=== PATIENT | female | born 1935 | race Caucasian/White ===

== ENCOUNTER 2016-07-06 09:12 | Emergency (ER) | payer OTHER ==
[~2016-07-06] VITALS: Ht 152.4 cm; Wt 72.6 kg
--- NOTE | 2016-07-06 09:36 | ED AMS/SEIZURE/WEAK/DIZZY ---
History of Present Illness General Chief Complaint: Dizziness Stated Complaint: DIZZY,SOB Source: patient, family Exam Limitations: no limitations Vital Signs & Intake/Output Vital Signs & Intake/Output Vital Signs Date Time Temp Pulse Resp B/P Pulse O2 O2 Flow FiO2 Ox Delivery Rate 07/06 1244 56 16 153/68 98 Room Air 07/06 1140 143/67 07/06 1134 97 Room Air 07/06 1104 76 18 96 Room Air 07/06 0919 97.0 60 20 163/93 98 Room Air Room Air Allergies Uncoded Allergies: ENVIRONMENTAL ALLERGIES DUST (Severe, SNEEZING, SINUS INFECTION 08/02/12) Reconcile Medications Amlodipine Bes/Olmesartan Med (Amlodipine-Olmesartan 5-20 MG) 5 MG-20 MG TABLET 1 TAB PO DAILY HEART (Reported) Augmentin (Augmentin 500-125 Tablet) 500 MG-125 MG TABLET 1 TAB PO BID SINUSITIS Cetirizine HCl (Zyrtec) 10 MG TABLET 1 TAB PO DAILY PRN CONGESTION Ezetimibe (Zetia) 10 MG TABLET 1 TAB PO DAILY CHOLESTEROL (Reported) Glimepiride 1 MG TABLET 1 TAB PO DAILY DIABETES (Reported) Glimepiride 2 MG TABLET 1 TAB PO DAILY DIABETES (Reported) Hydrochlorothiazide 25 MG TABLET 1 TAB PO DAILY WATER PILL (Reported) Insulin Detemir (Levemir Flextouch) 100 UNIT/ML (3 ML) INSULN.PEN 30 U SC QPM DIABETES (Reported) Insulin Lispro (Humalog) 100 UNIT/ML VIAL 8 U SC 1800 DIABETES (Reported) Linaclotide (Linzess) 290 MCG CAPSULE 1 CAP PO DAILY GI (Reported) Lovastatin 40 MG TABLET 1 TAB PO DAILY CHOLESTEROL (Reported) with food Meclizine HCl 25 MG TABLET 1 TAB PO TIDPRN PRN DIZZINESS Mometasone Furoate (Nasonex) 50 MCG SPRAY.PUMP 2 SPRAY NASB DAILY CONGESTION Scopolamine Hydrobromide (Transderm-Scop) 1.5MG/3DAY PATCH.TD.3 1 PAT TOP Q3D DIZZINESS apply to the hairless area behind 1 ear at least 4 hours before effect is required; reapply every 3 days as needed Sertraline HCl 50 MG TABLET 1 TAB PO DAILY MENTAL HEALTH (Reported) Sitagliptin Phosphate (Januvia) 100 MG TABLET 1 TAB PO DAILY DIABETES ( Reported) Triage Note: TRIAGE: 80 Y/O FEMALE PRESENTS WITH DAUGHTER C/O DIZZINESS, WITH ONSET YESTERDAY. "I DON'T FEEL RIGHT. MY LEGS FEEL SHAKY. I FEEL LIGHT HEADED." PER DAUGHTER, EYES APPEARS GALZED OVER LAST NIGHT. HISTORY OF HTN, DM, HYPERLIPIDEMIA. Triage Nurses Notes Reviewed? 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 Patient states at rest she feels much better and makes worse with movements. Daughter also noted that last night she had "GLAZED" LOOK IN HER EYES which has resolved since this morning. Patient woke up today and states the symptoms are still persistent Patient denies any fevers, chills, headache neck pain neck stiffness, ear pain, sore throat, chest pain arm pain jaw pain, abdominal pain, shortness of breath Patient did not take any medications for symptoms. Patient states that when symptoms are worse she has mild nausea without emesis Daughter denies any confusion, slurred speech, or weakness or facial droop (ADRIENNE PYLE) Past History Travel History Traveled to [place] past 21 day No Medical History Any Pertinent Medical History? see below for history Cardiovascular: hypertension, hyperlipidemia Endocrine: diabetes Surgical History Surgical History: non-contributory Psychosocial History What is your primary language Macedonian Tobacco Use: Never used ETOH Use: occasional use Illicit Drug Use: denies illicit drug use Family History Hx Contributory? No (ADRIENNE PYLE) Review of Systems Review of Systems Constitutional: Reports: no symptoms. EENTM: Reports: see HPI. Respiratory: Reports: see HPI. Cardiovascular: Reports: no symptoms. GI: Reports: see HPI, nausea. Denies: abdominal pain. Genitourinary: Reports: no symptoms. Musculoskeletal: Reports: no symptoms. Skin: Reports: no symptoms. Neurological/Psychological: Reports: no symptoms. Hematologic/Endocrine: Reports: no symptoms. Immunologic/Allergic: Reports: no symptoms. All Other Systems: Reviewed and Negative (ADRIENNE PYLE) Physical Exam Physical Exam General Appearance: well developed/nourished, no apparent distress, alert Comments: Well-developed well-nourished person in no acute distress HEENT: Normal EENT exam, extraocular motion intact, no nystagmus. Pupils equally round and reactive to light and accommodation. Nose is atraumatic. External auditory canal and Tympanic membranes clear. Pharynx normal. No swelling or edema. Bilateral frontal sinus point tenderness noted Nasal congestion noted Neck: Supple, no lymphadenopathy, normal range of motion without pain or tenderness Back: Nontender, no CVA tenderness. Cardiovascular: Regular rate and rhythms no murmurs rubs or gallops, normal JVP Respiratory: Chest nontender. No respiratory distress.breath sounds clear to auscultation bilaterally Abdomen: Soft, nontender nondistended, no appreciable organomegaly. Normal bowel sounds. No ascites Extremity: No edema, no calf tenderness to palpation, normal and equal pulses. Neuro: Alert oriented x3, motor sensory normal, cranial nerves II through XII grossly intact. Negative cerebellar testing negative Romberg Negative Dicks Hallpike Skin: No appreciable rash on exposed skin, skin is warm and dry. Psych: Mood and affect is normal, memory and judgment is normal. NIH STROKE SCALE 0 Core Measures ACS in differential dx? No CVA/TIA Diagnosis: No Severe Sepsis Present: No Septic Shock Present: No (ADRIENNE PYLE) Progress Differential Diagnosis: arrythmia, anemia, benign positional vertigo, CVA/stroke , dehydration, drug intoxication, encephalitis, electrolyte imbalance, GI bleed, hypoglycemia, hypoxia, intracranial Hem., intracranial mass/tumor, labrynthitis, meningitis, Meniere's disease, migraine PARKER, multiple sclerosis, pneumonia, postural hypotension, presyncope, post-traumatic vertigo, sepsis, seizure disorder, subarachnoid Hem., UTI/pyelo, vertebrobasilar insuff Plan of Care: Orders Procedure Date/time Status Add-on Test (ER Only) 07/06 1102 Active TROPONIN LEVEL 07/06 0948 Complete MAGNESIUM 07/06 0948 Complete COMPREHENSIVE METABOLIC PANEL 07/06 0948 Complete CBC WITHOUT DIFFERENTIAL 07/06 0948 Complete B-TYPE NATRIURETIC PEP (BNP) 07/06 0948 Complete EKG 07/06 0913 Active Laboratory Tests 07/06/16 0948: Anion Gap 10, Estimated GFR > 60, BUN/Creatinine Ratio 37.5 H, Glucose 275 H, Calcium 9.2, Magnesium 1.7, Total Bilirubin 0.4, AST 38 H, ALT 40, Alkaline Phosphatase 82, Troponin I < 0.01, Swr-J-Crnjfknpmvk Pept 53.8, Total Protein 6.5, Albumin 3.6, Globulin 2.9, Albumin/Globulin Ratio 1.2, CBC w Diff NO MAN DIFF REQ, RBC 4.41, MCV 86.0, MCH 29.3, RDW 15.7 H, MPV 13.4 H, Gran % 61.4, Lymphocytes % 27.2, Monocytes % 8.1, Eosinophils % 2.6, Basophils % 0.7, Absolute Granulocytes 3.9, Absolute Lymphocytes 1.7, Absolute Monocytes 0.5, Absolute Eosinophils 0.2, Absolute Basophils 0, PUBS MCHC 34.0 Patient currently is in no apparent distress. Due to history of present illness and exam findings or suspicion of sinus infection with associated symptoms of room spinning and peripheral vertigo. My suspicion of TIA or CVA is low Patient after blood work was essentially unremarkable except for elevated blood sugar that patient then was challenged to ambulate however she had 3 episodes of near fall patient was symptomatic of lightheaded sensation and patient's oxygen saturation was 88% with ambulation. CT scan and chest x-ray will be ordered IV will be established for fluids 07/06/2016 11:59:00 AM fingerstick was 161. Patient receiving IV fluids and will be challenged with ambulation and approximately 15 minutes Patient was noted to be ambulating with no symptoms steady gait oxygen saturation 95% RA and patient felt significantly improved. Discussed disposition and plan with Dr. Natarajan who agrees. (TAHIR RODRIGUEZ,ADRIENNE) Diagnostic Imaging: Viewed by Me: Radiology Read, CT Scan. Initial ED EKG: SINUS RHYTHM NOTED 56 BPM Comments: PATIENT: PO HEATH PRESENT AGE: 80 PATIENT ACCOUNT NO: [id number] : 37 LOCATION: [facility] ORDERING PHYSICIAN: ADRIENNE RODRIGUEZ SERVICE DATE: 07/06/163341 EXAM TYPE: CAT - CT HEAD WO IV CONTRAST EXAMINATION: CT HEAD WITHOUT CONTRAST CLINICAL INFORMATION: Dizziness and vertigo. COMPARISON: CT scan of the head dated 08/02/2012. TECHNIQUE: Contiguous axial imaging was performed from the skull base to vertex without intravenous administration of contrast. DLP: 529.16 mGy-cm. FINDINGS: There is no evidence of acute intracranial hemorrhage or territorial infarction. No abnormal mass effect or midline shift is seen. Bryant to white matter differentiation is well preserved. No extra-axial fluid collections are identified. The ventricles and sulci are mildly enlarged compared to 08/02/2012, consistent with involutional changes. Mild periventricular deep white matter low-attenuation is seen, consistent with ischemic small vessel disease. Calcification of the left vertebral artery and the carotid siphons is noted. The osseous structures and soft tissues are normal. The right mastoid air cells are aplastic in the left mastoid air cells are hypoplastic. The remainder of the visualized portions of the paranasal sinuses are well aerated and unremarkable. IMPRESSION: 1. No acute intracranial pathology. 2. Mild involutional changes and findings of ischemic small vessel disease. (ADRIENNE PYLE) Departure Departure Disposition: HOME OR SELF CARE Condition: Stable Clinical Impression Primary Impression: Sinusitis Secondary Impressions: Vertigo Referrals: MARKUS OTERO MD (PCP/Family) Additional Instructions: As discussed begin the prescription of Augmentin for the full course. Begin the prescription for Nasonex for congestion, Zyrtec for your symptoms, meclizine and scopolamine for dizziness and room spinning sensation. Begin [id number] Sudafed for congestion. If no better Friday follow-up with primary care doctor. If symptoms worsen return to emergency room. Continue home medications as directed. Begin to use a cane for fall prevention Departure Forms: Customer Survey General Discharge Information Prescriptions: Current Visit Scripts Augmentin (Augmentin 500-125 Tablet) 1 TAB PO BID #14 TAB Meclizine HCl 1 TAB PO TIDPRN PRN DIZZINESS #21 TAB Scopolamine Hydrobromide (Transderm-Scop) 1 PAT TOP Q3D #4 PAT apply to the hairless area behind 1 ear at least 4 hours before effect is required; reapply every 3 days as needed Cetirizine HCl (Zyrtec) 1 TAB PO DAILY PRN CONGESTION #14 TAB Mometasone Furoate (Nasonex) 2 SPRAY NASB DAILY #1 INHAL (ADRIENNE PYLE) PA/REGIONAL MARKETING MANAGER Co-Sign Statement Statement: ED Attending supervision documentation- [X] I saw and evaluated the patient. I have also reviewed all the pertinent lab results and diagnostic results. I agree with the findings and the plan of care as documented in the PA's/REGIONAL MARKETING MANAGER's documentation. [X] I have reviewed the ED Record and agree with the PA's/REGIONAL MARKETING MANAGER's documentation. [] Additions or exceptions (if any) to the PAs/REGIONAL MARKETING MANAGER's note and plan are summarized below: [] (JOCELINE TOUSSAINT,ASHWIN Philip)
[2016-07-06] MEDS ORDERED: TRANSDERM-SCOP1 EACH TOP (10:00)
[2016-07-06] MEDS ORDERED: MECLIZINE HCL25 MG PO (10:00)
[2016-07-06] MEDS ORDERED: ZYRTEC10 M3 PO (10:00)
[2016-07-06] MEDS ORDERED: NASONEX17 GM NASB (10:00)
[2016-07-06] MEDS ORDERED: AUGMENTIN 500-1 EACH PO (10:00)
[2016-07-06] MEDS ORDERED: AMLODIPINE-OLM1 EACH PO (10:07)
[2016-07-06] MEDS ORDERED: LOVASTATIN40 M1 PO (10:07)
[2016-07-06] MEDS ORDERED: JANUVIA100 M1 PO (10:07)
[2016-07-06] MEDS ORDERED: GLIMEPIRIDE1 M1 PO (10:08)
[2016-07-06] MEDS ORDERED: ZETIA10 M1 PO (10:08)
[2016-07-06] MEDS ORDERED: SERTRALINE HCL50 MG PO (10:08)
[2016-07-06] MEDS ORDERED: GLIMEPIRIDE2 MG PO (10:08)
[2016-07-06] MEDS ORDERED: HYDROCHLOROTHIA25 M1 PO (10:09)
[2016-07-06] MEDS ORDERED: HUMALOG100 UNIT/2 SC (10:09)
[2016-07-06 10:10] LABS: ABSOLUTE BASOPHIL COUNT 0 /CUMM (0.0-0.2); ABSOLUTE EOSINOPHIL COUNT 0.2 /CUMM (0.0-0.7); ABSOLUTE GRANULOCYTE CT 3.9 /CUMM (1.4-6.5); ABSOLUTE LYMPH COUNT 1.7 /CUMM (1.2-3.4); ABSOLUTE MONOCYTE COUNT 0.5 /CUMM (0.10-0.60); BASOPHIL % 0.7 % (0.0-2.0); EOSINOPHIL % 2.6 % (0-5); GRANULOCYTE % 61.4 % (42.2-75.2); HEMATOCRIT 37.9 % (37-47); MEAN CORPUSCULAR HGB 29.3 PG (27.0-31.0); MEAN PLATELET VOLUME 13.4 FL (7.4-10.4); PLATELET COUNT 109 /CUMM (130-400); RBC DISTRIBUTION WIDTH 15.7 % (11.5-14.5); RED BLOOD CELL CT 4.41 /CUMM (4.20-5.40); WHITE BLOOD CELL COUNT 6.3 /CUMM (4.8-10.8)
[2016-07-06] MEDS ORDERED: LEVEMIR FL100 UNIT/1 SC (10:10)
[2016-07-06] MEDS ORDERED: LINZESS290 MC1 PO (10:11)
--- NOTE | 2016-07-06 11:37 | CT SCAN REPORT ---
EXAMINATION: CT HEAD WITHOUT CONTRAST CLINICAL INFORMATION: Dizziness and vertigo. COMPARISON: CT scan of the head dated 08/02/2012. TECHNIQUE: Contiguous axial imaging was performed from the skull base to vertex without intravenous administration of contrast. DLP: 529.16 mGy-cm. FINDINGS: There is no evidence of acute intracranial hemorrhage or territorial infarction. No abnormal mass effect or midline shift is seen. Bryant to white matter differentiation is well preserved. No extra-axial fluid collections are identified. The ventricles and sulci are mildly enlarged compared to 08/02/2012, consistent with involutional changes. Mild periventricular deep white matter low-attenuation is seen, consistent with ischemic small vessel disease. Calcification of the left vertebral artery and the carotid siphons is noted. The osseous structures and soft tissues are normal. The right mastoid air cells are aplastic in the left mastoid air cells are hypoplastic. The remainder of the visualized portions of the paranasal sinuses are well aerated and unremarkable. IMPRESSION: 1. No acute intracranial pathology. 2. Mild involutional changes and findings of ischemic small vessel disease.
--- NOTE | 2016-07-06 11:40 | RADIOLOGY REPORT ---
EXAMINATION: XR CHEST CLINICAL INFORMATION: Shortness of breath. Dizziness. COMPARISON: Chest x-ray dated 09/15/2015 and 04/20/2012. TECHNIQUE: PA and lateral views of the chest were obtained. FINDINGS: The cardiomediastinal silhouette is borderline normal in size. Calcification and ectasia of the aorta is seen. Lungs bilaterally are symmetrically expanded and clear. No effusion or pneumothorax is seen. Moderate vertebral endplate spurring is seen in the mid and lower thoracic spine. IMPRESSION: No acute cardiopulmonary process seen.
[2016-07-06 12:44] VITALS: BP 153/68
== END 2016-07-06 12:49 ==
LOC: ERH 09:12
PROVIDERS: Physician Assistant
DX: J32.9 Chronic sinusitis, unspecified (principal); R42 Dizziness and giddiness
CPT/HCPCS: 93005; 93010